=== PATIENT | male | born 1995 | race Caucasian/White ===

== ENCOUNTER 2018-10-18 16:43 | Inpatient (IN) | payer SELFPAY ==
[~2018-10-18] VITALS: Ht 182.9 cm; Wt 90.0 kg
[2018-10-18 17:26] LABS: ACETAMINOPHEN < 10 ug/mL (10-30); ALANINE AMINOTRANSFERASE 46 U/L (21-72); ALBUMIN 4.4 gm/dL (3.5-5.0); ALCOHOL(ethanol),MEDICAL < 10 mg/dL; ALKALINE PHOSPHATASE 75 U/L (50-136); ANION GAP 6 mmol/L (7-16); AST,SGOT 34 U/L (15-37); BASO % 0.2 % (0.0-2.0); BILIRUBIN,TOTAL 1.4 mg/dL (0.0-1.0); BLOOD UREA NITROGEN 13 mg/dL (9-20); CALCIUM 9.8 mg/dL (8.4-10.2); CARBON DIOXIDE 33 mmol/L (22-30); CHLORIDE 99 mmol/L (98-107); CREATININE, serum 0.81 mg/dL (0.66-1.25); EOS # 0.1 (0.0-0.7); EOS % 0.3 % (0-4.0); GLUCOSE 124 mg/dL (74-106); GRAN # 14.4 (1.4-6.5); GRAN % 87.3 % (42.2-75.2); LYMPH # 0.9 (1.2-3.4); LYMPH % 5.5 % (20.0-51.0); MEAN CELL VOLUME 88 fl (80.0-100.0); MEAN CORPUSCULAR HEMOGLOBIN 31 pg (27.0-31.0); MEAN CORPUSCULAR HGB CONC 35 g/dl (33.0-37.0); MEAN PLATELET VOLUME 11.5 fl (7.4-10.4); MONO % 6.3 % (1.7-9.3); PLATELET COUNT 151 K/mm3 (130-400); POTASSIUM 3.7 mmol/L (3.4-5.0); RED BLOOD COUNT 5.24 M/mm3 (4.20-5.60); REDCELL DISTRIBUTION WIDTH-CV 11.7 % (11.5-14.5); SALICYLATE < 1.0 mg/dL; SODIUM 137 mmol/L (137-145); TOTAL PROTEIN 8.2 gm/dL (6.4-8.2)
[2018-10-18 17:55] LABS: THYROID STIMULATING HORMONE 0.674 uIU/mL (0.465-4.680)
[2018-10-18 18:35] LABS: MUCOUS Present /lpf; PH 5 (5-8); SQUAMOUS EPITHELIAL None Seen /hpf; URINE APPEARANCE Clear; URINE BACTERIA None Seen /hpf; URINE BILIRUBIN Negative (NEGATIVE); URINE BLOOD Negative (NEGATIVE); URINE COLOR Yellow; URINE GLUCOSE Negative (NEGATIVE); URINE KETONE Negative (NEGATIVE); URINE LEUKOCYTE ESTERASE Negative (NEGATIVE); URINE NITRATE Negative (NEGATIVE); URINE PROTEIN(semi-quant) Negative (NEGATIVE); URINE RBC 0-2 /hpf; URINE UROBILINOGEN Negative (NEGATIVE); URINE WBC 0-2 /hpf
[2018-10-18 18:47] LABS: COLLECTION METHOD CLEAN CATCH
[2018-10-18 18:50] LABS: TRICYCLIC ANTIDEPRESS URINE NEGATIVE
[2018-10-18 19:49] LABS: GLUCOSE,CSF 58 mg/dL (40-70); TOTAL PROTEIN,CSF 40 mg/dL (15-45)
[2018-10-18 20:42] LABS: CSF APPEARANCE CLEAR; CSF COLOR COLORLESS
[2018-10-18 20:43] LABS: CSF APPEARANCE CLEAR; CSF COLOR COLORLESS; CSF MONONUCLEAR 50 % (70-100); CSF POLYMORPHONUCLEAR 50 % (0-6); CSF RBC 583 /mm3 (0-0)
[2018-10-18 20:44] LABS: CSF MONONUCLEAR 50 % (70-100); CSF POLYMORPHONUCLEAR 50 % (0-6); CSF RBC 408 /mm3 (0-0)
[2018-10-18 23:39] VITALS: BP 114/60; PULSE 82; TEMP 97.8
[2018-10-19 02:14] LABS: C-REACTIVE PROTEIN 5.1 mg/dL (0.0-0.9)
[2018-10-19 04:01] VITALS: BP 103/54; PULSE 82; TEMP 97.5
[2018-10-19 07:21] LABS: HEMATOCRIT 42.6 % (42.0-52.0); HEMOGLOBIN 14.6 g/dl (13.5-18.0); MEAN CELL VOLUME 88 fl (80.0-100.0); MEAN CORPUSCULAR HEMOGLOBIN 30 pg (27.0-31.0); MEAN CORPUSCULAR HGB CONC 34 g/dl (33.0-37.0); MEAN PLATELET VOLUME 11.8 fl (7.4-10.4); PLATELET COUNT 161 K/mm3 (130-400); RED BLOOD COUNT 4.85 M/mm3 (4.20-5.60); REDCELL DISTRIBUTION WIDTH-CV 11.5 % (11.5-14.5)
[2018-10-19 07:34] LABS: CALCIUM 9.3 mg/dL (8.4-10.2); CREATININE, serum 0.58 mg/dL (0.66-1.25); POTASSIUM 3.9 mmol/L (3.4-5.0)
[2018-10-19 07:46] LABS: BAND 15 % (0-10); LYMPHOCYTE 7 % (20.0-51.0); NEUTROPHILS 76 % (42.0-75.2); PLATELET ESTIMATE NORMAL (NORMAL)
[2018-10-19 08:26] VITALS: BP 107/49; PULSE 73; TEMP 98.3
[2018-10-19 11:23] VITALS: BP 114/60; PULSE 72; TEMP 97.8
[2018-10-19 15:36] VITALS: BP 109/61; PULSE 81; TEMP 97.2
[2018-10-19 19:48] VITALS: BP 108/70; PULSE 76; TEMP 98
[2018-10-19 23:18] VITALS: BP 106/42; PULSE 74; TEMP 98.2
[2018-10-20 04:08] VITALS: BP 101/54; PULSE 106; TEMP 97.7
[2018-10-20 08:00] LABS: BASO % 0.1 % (0.0-2.0); EOS % 0.2 % (0-4.0); GRAN # 6.2 (1.4-6.5); GRAN % 73.2 % (42.2-75.2); HEMATOCRIT 40.6 % (42.0-52.0); HEMOGLOBIN 13.7 g/dl (13.5-18.0); LYMPH # 1.6 (1.2-3.4); LYMPH % 19.1 % (20.0-51.0); MEAN CELL VOLUME 89 fl (80.0-100.0); MEAN CORPUSCULAR HEMOGLOBIN 30 pg (27.0-31.0); MEAN CORPUSCULAR HGB CONC 34 g/dl (33.0-37.0); MEAN PLATELET VOLUME 11.8 fl (7.4-10.4); MONO # 0.6 (0.1-0.6); PLATELET COUNT 132 K/mm3 (130-400); RED BLOOD COUNT 4.54 M/mm3 (4.20-5.60); REDCELL DISTRIBUTION WIDTH-CV 11.8 % (11.5-14.5)
[2018-10-20 08:10] VITALS: BP 108/62; PULSE 63; TEMP 97.9
[2018-10-20] MEDS ORDERED: CLEOCIN HCL300 MG PO (10:25)
== END 2018-10-20 12:00 | disposition home or self-care (01) | DRG 872 ==
LOC: COL.ER 16:43 → MEDICAL 21:05
PROVIDERS: Emergency Medicine; Nurse Practitioner; Physician Assistant
PROC: 009U3ZX Drainage of Spinal Canal, Percutaneous Approach, Diagnostic (ICD-10-PCS; principal; 2018-10-18)
DX: A41.9 Sepsis, unspecified organism (principal); J03.90 Acute tonsillitis, unspecified; R41.82 Altered mental status, unspecified
CPT/HCPCS: 99223-AI; 99239; G0378; J0696; J1100; J1650; J1885; J2405; J3370; J7030; J7050; Q9967